=== PATIENT | female | born 1960 | race Caucasian/White ===

== ENCOUNTER 2020-06-03 09:39 | Observation (INO) | payer OTHER ==
[2020-06-03 10:22] LABS: Absolute Lymphocytes (CBC) 2.9 K/uL (0.7-4.9); Basophils % 0.8 % (0-1.3); Hematocrit 42.9 % (36.0-45.0); Lymphocytes % 40.9 % (15.3-44.8); MPV 8.8 fL (7.6-11.3); RBC Red Blood Cell Count 4.76 M/uL (3.86-4.86)
[2020-06-03] MEDS ORDERED: ASPIRIN EC 81 MG TAB PO ONE (10:32)
[2020-06-03] MEDS ORDERED: NITROGLYCERIN 0.4 MG/TAB SL ONE (10:32)
[2020-06-03 10:35] LABS: Protime INR 0.93
[2020-06-03 10:42] LABS: ALT/SGPT 28 U/L (12-78); AST/SGOT 18 U/L (15-37); Albumin 3.8 g/dL (3.4-5.0); Alkaline Phosphatase 52 U/L (45-117); BUN Blood Urea Nitrogen 10 mg/dL (7-18); Bicarbonate 33 mmol/L (21-32); Bilirubin Direct < 0.1 mg/dL (0-0.2); Bilirubin Total 0.3 mg/dL (0.2-1.0); Glucose Level 89 mg/dL (74-106); Magnesium 2.2 mg/dL (1.8-2.4); NT PRO-BNP 61 pg/mL (<125); Potassium 3.8 mmol/L (3.5-5.1); Protein, Total 7.5 g/dL (6.4-8.2); Sodium Level 139 mmol/L (136-145); Troponin (Emerg Dept Use Only) < 0.02 ng/mL (0.0-0.045)
--- NOTE | 2020-06-03 11:30 | RAD REPORT ---
EXAM DESCRIPTION: Elise Single View06/03/2020 10:29 am CLINICAL HISTORY: Chest pain COMPARISON: none FINDINGS: The lungs appear clear of acute infiltrate. The heart is normal size IMPRESSION: No acute abnormalities displayed
[2020-06-03] MEDS ORDERED: MAGNES/ALUMIN/SIMET 30ML UCUP ONE (11:31)
[2020-06-03] MEDS ORDERED: LIDOCAINE VISCOUS 2% SOLN 15 ML UDC ONE ×2 (11:31→11:33)
--- NOTE | 2020-06-03 13:06 | EDPHYS ---
Physician Documentation [facility] Name: Kellie Go Age: 59 yrs Sex: Female : 1960 Arrival Date: 06/03/2020 Time: 09:43 Bed 13 Private MD: Lloyd Nicole ED Physician Earl Godwin HPI: 06/03 10:03 This 59 yrs old Female presents to ER via Unassigned with complaints of Chest jr8 Pain. 10:03 The patient or guardian reports chest pain that is located primarily in the anterior jr8 chest wall, left. Onset: acutely, this morning, at 03:00. The pain does not radiate. Associated signs and symptoms: Pertinent positives: diaphoresis, shortness of breath. The chest pain is described as burning, dull. Duration: The patient or guardian reports a single episode, that is still ongoing. Modifying factors: The symptoms are alleviated by nothing. the symptoms are aggravated by nothing. Severity of pain: At its worst the pain was moderate in the emergency department the pain is unchanged. The patient has not experienced similar symptoms in the past. The patient has not recently seen a physician. Historical: - Allergies: 10:32 No Known Allergies; ld1 - Home Meds: 10:15 lisinopril 20 mg Oral tab 1 tab once daily [Active]; aspirin 81 mg Oral chew 1 tab once ld1 daily [Active]; - PMHx: 10:15 Hypertension; Hyperlipidemia; ld1 - Immunization history:: Adult Immunizations up to date, Adult Immunizations up to date. - Social history:: Smoking status: Patient denies any tobacco usage or history of. Patient/guardian denies using alcohol, Smoking status: Patient denies any tobacco usage or history of. Patient/guardian denies using alcohol. ROS: 10:03 Eyes: Negative for injury, pain, redness, and discharge, ENT: Negative for injury, jr8 pain, and discharge, Neck: Negative for injury, pain, and swelling, Abdomen/GI: Negative for abdominal pain, nausea, vomiting, diarrhea, and constipation, Back: Negative for injury and pain, MS/Extremity: Negative for injury and deformity, Skin: Negative for injury, rash, and discoloration, Neuro: Negative for headache, weakness, numbness, tingling, and seizure. 10:03 Cardiovascular: Positive for chest pain, Negative for edema, orthopnea, palpitations, paroxysmal nocturnal dyspnea. 10:03 Respiratory: Positive for shortness of breath, Negative for cough, dyspnea on exertion, sputum production, wheezing. Exam: 10:03 Neck: Trachea midline, no thyromegaly or masses palpated, and no cervical jr8 lymphadenopathy. Supple, full range of motion without nuchal rigidity, or vertebral point tenderness. No Meningismus. Chest/axilla: Normal chest wall appearance and motion. Nontender with no deformity. No lesions are appreciated. Cardiovascular: Regular rate and rhythm with a normal S1 and S2. No gallops, murmurs, or rubs. Normal PMI, no JVD. No pulse deficits. Respiratory: Lungs have equal breath sounds bilaterally, clear to auscultation and percussion. No rales, rhonchi or wheezes noted. No increased work of breathing, no retractions or nasal flaring. Abdomen/GI: Soft, non-tender, with normal bowel sounds. No distension or tympany. No guarding or rebound. No evidence of tenderness throughout. Back: No spinal tenderness. No costovertebral tenderness. Full range of motion. Skin: Warm, dry with normal turgor. Normal color with no rashes, no lesions, and no evidence of cellulitis. MS/ Extremity: Pulses equal, no cyanosis. Neurovascular intact. Full, normal range of motion. Neuro: Awake and alert, GCS 15, oriented to person, place, time, and situation. Cranial nerves II-XII grossly intact. Motor strength 5/5 in all extremities. Sensory grossly intact. Cerebellar exam normal. Normal gait. 10:53 ECG was reviewed by the Attending Physician. jr8 Vital Signs: 10:15 BP 144 / 73; Pulse 61; Resp 16; Temp 97.5(O); Pulse Ox 97% on R/A; Weight 70.31 kg; ld1 Height 5 ft. 0 in. (152.40 cm); Pain 7/10; 10:25 BP 144 / 73; Pulse 61; Resp 16; Temp 97.5(O); Pulse Ox 97% on R/A; Weight 70.31 kg; ld1 Height 5 ft. 0 in. (152.40 cm); Pain 10/10; 11:25 BP 128 / 70; Pulse 50; Resp 15; Temp 97.5(O); Pulse Ox 98% on R/A; Pain 5/10; ld1 12:49 BP 120 / 64; Pulse 52; Resp 15; Temp 97.5(O); Pulse Ox 98% on R/A; Pain 3/10; ld1 13:45 BP 125 / 69; Pulse 50; Resp 18; Pulse Ox 97% on R/A; Pain 2/10; ld1 14:50 BP 130 / 98; Pulse 59; Resp 14; Pulse Ox 97% on R/A; Pain 3/10; ld1 16:00 BP 128 / 96; Pulse 60; Resp 16; Pulse Ox 98% on R/A; Pain 3/10; ld1 16:43 BP 132 / 98; Pulse 55; Resp 16; Pulse Ox 97% on R/A; Pain 3/10; ld1 17:31 BP 135 / 75; Pulse 58; Resp 12; Pulse Ox 97% on R/A; ld1 18:29 BP 115 / 53; Pulse 53; Resp 17; Pulse Ox 96% on R/A; ld1 10:25 Body Mass Index 30.27 (70.31 kg, 152.40 cm) ld1 MDM: 09:54 Patient medically screened. jr8 13:05 The patient was given aspirin in the Emergency Department. Data reviewed: vital signs, jr8 nurses notes, lab test result(s), EKG, radiologic studies, plain films. Data interpreted: Pulse oximetry: on room air is 98 %. Interpretation: normal. Counseling: I had a detailed discussion with the patient and/or guardian regarding: the historical points, exam findings, and any diagnostic results supporting the discharge/admit diagnosis, lab results, radiology results, the need for further work-up and treatment in the hospital. 13:05 ED course: Patient still having chest pain regardless of the GI cocktail and nitro. jr8 Strong family history and has comorbidities. Will put in for chest pain observation under Dr. Nicole and have cardiology see patient . 06/03 09:54 Order name: Basic Metabolic Panel; Complete Time: 10:49 8 06/03 09:54 Order name: CBC with Diff; Complete Time: 10:49 8 06/03 09:54 Order name: LFT's; Complete Time: 10:49 8 06/03 09:54 Order name: Magnesium; Complete Time: 10:49 8 06/03 09:54 Order name: NT PRO-BNP; Complete Time: 10:49 8 06/03 09:54 Order name: PT-INR; Complete Time: 10:58 8 06/03 09:54 Order name: Troponin (emerg Dept Use Only); Complete Time: 10:49 8 06/03 12:38 Order name: Troponin (emerg Dept Use Only); Complete Time: 13:23 [facility] 06/03 15:36 Order name: COVID-19 : Document "Date of Symptom Onset" if Symptomatic. [facility] 06/03 16:04 Order name: CORONAVIRUS EDNM 06/03 17:43 Order name: Troponin I; Complete Time: 17:45 [facility] 06/03 18:18 Order name: SARS-COV-2 RT PCR; Complete Time: 18:20 [facility] 06/03 20:58 Order name: Troponin I; Complete Time: 21:17 [facility] 06/03 09:54 Order name: XRAY Chest (1 view); Complete Time: 11:31 [facility] 06/03 09:54 Order name: EKG; Complete Time: 09:55 [facility] 06/03 09:54 Order name: Cardiac monitoring; Complete Time: 10:10 [facility] 06/03 09:54 Order name: EKG - Nurse/Tech; Complete Time: 10:10 [facility] 06/03 09:54 Order name: IV Saline Lock; Complete Time: 10:10 [facility] 06/03 09:54 Order name: Labs collected and sent; Complete Time: 10:10 [facility] 06/04 04:17 Order name: CBC with Automated Diff EDNM 06/04 04:59 Order name: Basic Metabolic Panel EDNM 06/04 04:59 Order name: Lipid Profile EDNM 06/04 04:59 Order name: Thyroid Stimulating Hormone EDNM 06/03 09:54 Order name: O2 Per Protocol; Complete Time: 10:10 [facility] 06/03 09:54 Order name: O2 Sat Monitoring; Complete Time: 10:10 EC:53 Rate is 50 beats/min. Rhythm is regular, Sinus bradycardia. QRS Cactus is Normal. VA jr8 interval is normal at 196 msec. QRS interval is normal at 82 msec. QT interval is normal at 420 msec. No Q waves. T waves are Inverted in leads V1, V2. No ST changes noted. Clinical impression: Sinus bradycardia. Interpreted by me. Reviewed by me. Administered Medications: 10:17 Drug: Aspirin Chewable Tablet 243 mg Route: PO; ld1 10:35 Follow up: Response: No adverse reaction ld1 10:17 Drug: Nitroglycerin 0.4 mg Route: Sublingual; ld1 10:25 Follow up: Response: No adverse reaction; Pain is unchanged, physician notified ld1 11:18 Drug: GI Cocktail without - (Maalox Suspension 30 ml, Lidocaine Liquid 2 % 15 ld1 ml) Route: PO; 11:30 Follow up: Response: No adverse reaction; Pain is decreased ld1 13:06 Drug: fentaNYL (PF) 50 mcg Route: IVP; Site: left antecubital; ld1 13:22 Follow up: Response: No adverse reaction; Pain is decreased ld1 17:17 Drug: morphine 4 mg Route: IVP; Site: left antecubital; ld1 17:32 Follow up: Response: No adverse reaction ld1 17:18 Drug: Zofran (Ondansetron) 4 mg Route: IVP; Site: left antecubital; ld1 17:32 Follow up: Response: No adverse reaction ld1 Disposition: 06/03/20 13:05 Hospitalization ordered by Lloyd Nicole for Observation. Preliminary diagnosis is Chest pain, unspecified. - Bed requested for Telemetry/MedSurg (observation). - Status is Observation. ea - Condition is Stable. - Problem is new. - Symptoms are unchanged. Addendum: 06/06/2020 07:09 Co-signature as Attending Physician, Earl Godwin MD. r n Signatures: Dispatcher [employer] EDPolina Liang Roman, MD MD rn Roszak, Josh, PA PA jr8 Kasandra Weathers RN RN ea Trim, Tyler tt3 Liz Pérez RN RN ld1 Corrections: (The following items were deleted from the chart) 06/03 10:33 10:32 Immunization history: Adult Immunizations up to date, ld1 ld1 10:33 10:32 Social history: Smoking status: Patient denies any tobacco usage or history of. ld1 Patient/guardian denies using alcohol, ld1 17:19 13:05 Hospitalization Ordered by Lloyd Nicole MD for Observation. Preliminary diagnosis bd is Chest pain, unspecified. Bed requested for Telemetry/MedSurg (observation). Status is Observation. Condition is Stable. Problem is new. Symptoms are unchanged. jr8 06/04 03:37 04/07 17:19 06/03/2020 13:05 Hospitalization Ordered by Lloyd Nicole MD for tt3 Observation. Preliminary diagnosis is Chest pain, unspecified. Bed requested for [facility] ER HOLD. Status is Observation. Condition is Stable. Problem is new. Symptoms are unchanged. bd 06/04 05:07 03:37 06/03/2020 13:05 Hospitalization Ordered by Lloyd Nicole MD for Observation. ea Preliminary diagnosis is Chest pain, unspecified. Bed requested for Telemetry/MedSurg (observation). Status is Observation. Condition is Stable. Problem is new. Symptoms are unchanged. tt3
--- NOTE | 2020-06-03 13:06 | ER ---
Nurse's Notes [facility] Name: Kellie Go Age: 59 yrs Sex: Female : 1960 Arrival Date: 06/03/2020 Time: 09:43 Bed 13 Private MD: Lloyd Nicole Diagnosis: Chest pain, unspecified Presentation: 06/03 10:15 Chief complaint: Patient states: Patient came in c/o chest pain. Coronavirus screen: ld1 Client denies travel out of the [place] in the last 14 days. Ebola Screen: Patient negative for fever greater than or equal to 101.5 degrees Fahrenheit, and additional compatible Ebola Virus Disease symptoms Patient denies exposure to infectious person. Patient denies travel to an Ebola-affected area in the 21 days before illness onset. 10:15 Method Of Arrival: Ambulatory ld1 10:15 Initial Sepsis Screen: Does the patient meet any 2 criteria? No. Patient's initial ld1 sepsis screen is negative. Does the patient have a suspected source of infection? No. Patient's initial sepsis screen is negative. Risk Assessment: Do you want to hurt yourself or someone else? Patient reports no desire to harm self or others. Onset of symptoms was June 03, 2020 at 03:00. 10:15 Acuity: KRAIG 2 ld1 Triage Assessment: 10:15 General: Behavior is calm, cooperative, appropriate for age. Pain: Complains of pain in ld1 chest Pain radiates to left scapular area Pain currently is 7 out of 10 on a pain scale. Quality of pain is described as pressure, throbbing, Pain began 4 hours ago. Is continuous. EENT: No deficits noted. Neuro: Level of Consciousness is awake, alert, obeys commands, Oriented to person, place, time, situation. Cardiovascular: Reports chest pain, Patient's skin is warm and dry. Rhythm is regular. Respiratory: Airway is patent Respiratory effort is even, unlabored, Respiratory pattern is regular, symmetrical. GI: No signs and/or symptoms were reported involving the gastrointestinal system. : No signs and/or symptoms were reported regarding the genitourinary system. Derm: No signs and/or symptoms reported regarding the dermatologic system. Musculoskeletal: No signs and/or symptoms reported regarding the musculoskeletal system. Historical: - Allergies: 10:32 No Known Allergies; ld1 - Home Meds: 10:15 lisinopril 20 mg Oral tab 1 tab once daily [Active]; aspirin 81 mg Oral chew 1 tab once ld1 daily [Active]; - PMHx: 10:15 Hypertension; Hyperlipidemia; ld1 - Immunization history:: Adult Immunizations up to date, Adult Immunizations up to date. - Social history:: Smoking status: Patient denies any tobacco usage or history of. Patient/guardian denies using alcohol, Smoking status: Patient denies any tobacco usage or history of. Patient/guardian denies using alcohol. Screenin:25 Abuse screen: Denies threats or abuse. Denies injuries from another. Nutritional ld1 screening: No deficits noted. Tuberculosis screening: No symptoms or risk factors identified. Fall Risk IV access (20 points). Assessment: 10:25 Reassessment: No changes from previously documented assessment. Patient and/or family ld1 updated on plan of care and expected duration. Pain level reassessed. Patient is alert, oriented x 3, equal unlabored respirations, skin warm/dry/pink. See triage assessment. 10:25 Pain: Complains of pain in chest Pain radiates to left scapular area and left ld1 subscapular area Pain currently is 7 out of 10 on a pain scale. Quality of pain is described as pressure, throbbing, Pain began 4 hours ago. Is continuous. 11:25 Reassessment: Patient states that chest pain was unrelieved by Nitroglycerin, notified ld1 ERP. GI cocktail was ordered and given at 1118. 11:25 Reassessment: Patient stated that chest pain intensity was decreasing after GI cocktail ld1 was consumed. Notified ERP. See MAR for orders. 12:49 Reassessment: Patient and/or family updated on plan of care and expected duration. Pain ld1 level reassessed. Patient states feeling better. Patient states she is feeling better and pain has decreased but still experiencing pain level 3/10.. General: Appears in no apparent distress. comfortable. 13:00 Reassessment:. Reassessment: Patient stated she felt like she still had chest pressure, ld1 notified ERP. See MAR for orders. 14:30 Reassessment: No changes from previously documented assessment. Patient and/or family ld1 updated on plan of care and expected duration. Pain level reassessed. Patient is alert, oriented x 3, equal unlabored respirations, skin warm/dry/pink. Patient denies pain at this time. 15:55 Reassessment: No changes from previously documented assessment. Patient and/or family ld1 updated on plan of care and expected duration. Pain level reassessed. Patient is alert, oriented x 3, equal unlabored respirations, skin warm/dry/pink. Patient denies pain at this time. 18:29 Reassessment: No changes from previously documented assessment. Patient and/or family ld1 updated on plan of care and expected duration. Pain level reassessed. Patient is alert, oriented x 3, equal unlabored respirations, skin warm/dry/pink. Vital Signs: 10:15 BP 144 / 73; Pulse 61; Resp 16; Temp 97.5(O); Pulse Ox 97% on R/A; Weight 70.31 kg; ld1 Height 5 ft. 0 in. (152.40 cm); Pain 7/10; 10:25 BP 144 / 73; Pulse 61; Resp 16; Temp 97.5(O); Pulse Ox 97% on R/A; Weight 70.31 kg; ld1 Height 5 ft. 0 in. (152.40 cm); Pain 10/10; 11:25 BP 128 / 70; Pulse 50; Resp 15; Temp 97.5(O); Pulse Ox 98% on R/A; Pain 5/10; ld1 12:49 BP 120 / 64; Pulse 52; Resp 15; Temp 97.5(O); Pulse Ox 98% on R/A; Pain 3/10; ld1 13:45 BP 125 / 69; Pulse 50; Resp 18; Pulse Ox 97% on R/A; Pain 2/10; ld1 14:50 BP 130 / 98; Pulse 59; Resp 14; Pulse Ox 97% on R/A; Pain 3/10; ld1 16:00 BP 128 / 96; Pulse 60; Resp 16; Pulse Ox 98% on R/A; Pain 3/10; ld1 16:43 BP 132 / 98; Pulse 55; Resp 16; Pulse Ox 97% on R/A; Pain 3/10; ld1 17:31 BP 135 / 75; Pulse 58; Resp 12; Pulse Ox 97% on R/A; ld1 18:29 BP 115 / 53; Pulse 53; Resp 17; Pulse Ox 96% on R/A; ld1 10:25 Body Mass Index 30.27 (70.31 kg, 152.40 cm) ld1 ED Course: 09:43 Patient arrived in ED. am2 09:43 Lloyd Nicole MD is Private Physician. am2 09:54 [facility] White [facility] jr8 09:54 Earl Godwin MD is Attending Physician. jr8 10:08 Liz Pérez RN is Primary Nurse. ld1 10:13 Inserted saline lock: 20 gauge in left antecubital area, using aseptic technique. Blood ld1 collected. 10:15 Arm band placed on Patient placed in an exam room, on cardiac exercise specialist, on pulse ld1 oximetry. EKG completed in triage. Results shown to MD. 10:25 No provider procedures requiring assistance completed. Inserted saline lock: 20 gauge ld1 in left antecubital area, using aseptic technique. Blood collected. Patient maintains SpO2 saturation greater than 95% on room air. 10:25 Patient has correct armband on for positive identification. Placed in gown. Bed in low ld1 position. Call light in reach. Side rails up X 1. athletic monitor on. Pulse ox on. NIBP on. 10:29 XRAY Chest (1 view) In Process Unspecified. EDMS 10:32 Triage completed. ld1 12:49 Troponin (emerg Dept Use Only) Sent. ld1 13:05 Lloyd Nicole MD is Hospitalizing Provider. jr8 15:59 COVID-19 : Document "Date of Symptom Onset" if Symptomatic. Sent. ld1 16:46 CORONAVIRUS Sent. ld1 Administered Medications: 10:17 Drug: Aspirin Chewable Tablet 243 mg Route: PO; ld1 10:35 Follow up: Response: No adverse reaction ld1 10:17 Drug: Nitroglycerin 0.4 mg Route: Sublingual; ld1 10:25 Follow up: Response: No adverse reaction; Pain is unchanged, physician notified ld1 11:18 Drug: GI Cocktail without - (Maalox Suspension 30 ml, Lidocaine Liquid 2 % 15 ld1 ml) Route: PO; 11:30 Follow up: Response: No adverse reaction; Pain is decreased ld1 13:06 Drug: fentaNYL (PF) 50 mcg Route: IVP; Site: left antecubital; ld1 13:22 Follow up: Response: No adverse reaction; Pain is decreased ld1 17:17 Drug: morphine 4 mg Route: IVP; Site: left antecubital; ld1 17:32 Follow up: Response: No adverse reaction ld1 17:18 Drug: Zofran (Ondansetron) 4 mg Route: IVP; Site: left antecubital; ld1 17:32 Follow up: Response: No adverse reaction ld1 Outcome: 13:05 Decision to Hospitalize by Provider. jr8 06/04 05:07 Patient left the ED. ea Signatures: Dispatcher [employer] EDMS Camacho White PA PA jr8 Renetta Patterson am2 Kasandra Weathers RN RN Liz Bui RN RN ld1 Corrections: (The following items were deleted from the chart) 06/03 10:32 10:18 Chief complaint: ld1 ld1 10:33 10:32 Immunization history: Adult Immunizations up to date, ld1 ld1 10:33 10:32 Social history: Smoking status: Patient denies any tobacco usage or history of. ld1 Patient/guardian denies using alcohol, ld1 : 10:33 General: Behavior is calm, cooperative, appropriate for age, ld1 ld1 10:36 10:33 Pain: Complains of pain in chest Pain radiates to left scapular area Pain ld1 currently is 7 out of 10 on a pain scale. Quality of pain is described as pressure, throbbing, Pain began 4 hours ago. Is continuous, ld1 : 10:33 EENT: No deficits noted. ld1 ld1 :36 10:33 Neuro: Level of Consciousness is awake, alert, obeys commands, Oriented to ld1 person, place, time, situation, ld1 :36 10:33 Cardiovascular: Reports chest pain, Patient's skin is warm and dry. Rhythm is ld1 regular ld1 :36 10:33 Respiratory: Airway is patent Respiratory effort is even, unlabored, Respiratory ld1 pattern is regular, symmetrical, ld1 :36 10:33 GI: No signs and/or symptoms were reported involving the gastrointestinal system. ld1 ld1 : 10:33 : No signs and/or symptoms were reported regarding the genitourinary system. ld1ld1 10:36 10:33 Derm: No signs and/or symptoms reported regarding the dermatologic system. ld1 ld1 10:36 10:33 Musculoskeletal: No signs and/or symptoms reported regarding the musculoskeletal ld1 system. ld1 11:39 11:38 Response: No adverse reaction ld1 ld1
[2020-06-03] MEDS ORDERED: FENTANYL CITR 100 MCG/2 ML ONE (13:20)
[2020-06-03] MEDS ORDERED: ONDANSETRON 4 MG/2 ML VIAL IV PRN (16:03)
--- NOTE | 2020-06-03 16:30 | P.HP ---
Certification for Inpatient Patient admitted to: Observation With expected LOS: <2 Midnights Patient will require the following post-hospital care: None Practitioner: I am a practitioner with admitting privileges, knowledge of patient current condition, hospital course, and medical plan of care. Services: Services provided to patient in accordance with Admission requirements found in Title 42 Section 412.3 of the Code of Federal Regulations Patient History Date of Service: 06/03/20 Primary Care Provider: Corey Reason for admission: Chest pain History of Present Illness: Patient recently established care with us. She has a history of htn, elevated cholesterol. She has chronic neck pain for which she is being seen by Dr Shaheen Dumont. The patient woke up this morning with left sided chest pain. Which was different from her regular neck pain. Mostly it was in the front of her chest. She described it as stabbing over the left side of her chest. She went to work. However she had this constantly and decided to come to the ER. She did not have any relief with ntg. She had some relief with the GI cocktail. As with the iv fentanyl However not resolved. Her son had early AK. However that was after a history of drug abuse and dm2. She does not have dm2. Never had this type of pain before. Allergies No Known Allergies Allergy (Unverified 06/03/20 15:41) Review of Systems 10-point ROS is otherwise unremarkable Cardiovascular: Chest Pain Physical Examination - Physical Exam General: Alert, In no apparent distress HEENT: Atraumatic, PERRLA, Mucous membr. moist/pink, EOMI, Sclerae nonicteric Neck: Supple, 2+ carotid pulse no bruit, No LAD, Without JVD or thyroid abnormality Respiratory: Clear to auscultation bilaterally, Normal air movement Cardiovascular: Regular rate/rhythm, Normal S1 S2 Gastrointestinal: Normal bowel sounds, No tenderness Musculoskeletal: No tenderness Integumentary: No rashes Neurological: Normal gait, Normal speech, Normal strength at 5/5 x4 extr, Normal tone, Normal affect Lymphatics: No axilla or inguinal lymphadenopathy - Studies Laboratory Data (last 24 hrs) 06/03/20 10:05: PT 10.7, INR 0.93 06/03/20 10:05: WBC 7.10, Hgb 14.6, Hct 42.9, Plt Count 413 H 06/03/20 10:05: Sodium 139, Potassium 3.8, BUN 10, Creatinine 0.65, Glucose 89, Magnesium 2.2, Total Bilirubin 0.3, AST 18, ALT 28, Alkaline Phosphatase 52 Assessment and Plan - Problems (Diagnosis) (1) Chest pain Current Visit: Yes Status: Acute Plan: Currently has no ekg changes. She has an initial negative troponins. Will keep her for observation. Check serial troponins. Have the patient seen by Cardiology. Will let them decide if she needs an inpatient or out patient work up. Qualifiers: Ischemic chest pain type: unstable angina pectoris (2) HTN (hypertension) Current Visit: Yes Status: Acute Plan: Currently stable. Will check for her home medications. adjust as necessary. Qualifiers: Hypertension type: essential hypertension Qualified Code(s): I10 - Essential (primary) hypertension (3) Hyperlipidemia Current Visit: Yes Status: Chronic Plan: will recheck her labs. Start the patient on a statin at this time. Qualifiers: Hyperlipidemia type: moderate mixed hyperlipidemia not requiring statin therapy Qualified Code(s): E78.2 - Mixed hyperlipidemia Discharge Plan: Home Plan to discharge in: 24 Hours - Advance Directives Does patient have a Living Will: No Does patient have a Durable POA for Healthcare: No - Code Status/Comfort Care Code Status Assessed: Yes Code Status: Full Code Physician Review: Patient Assessed, Agree with Above Assessment and Plan Critical Care: No Time Spent Managing Pts Care (In Minutes): 45
[2020-06-03] MEDS ORDERED: ENOXAPARIN 40 MG/0.4 ML SQ SCH (17:00)
[2020-06-03] MEDS ORDERED: MORPHINE 4 MG/ML SYR ONE ×2 (17:22→20:39)
[2020-06-03] MEDS ORDERED: ONDANSETRON 4 MG/2 ML VIAL ONE (17:22)
[2020-06-03 18:57] VITALS: BMI 30.2
[2020-06-03] MEDS ORDERED: ENOXAPARIN 40 MG/0.4 ML SQ ONE (19:29)
[2020-06-03] MEDS: MORPHINE 4 MG/ML SYR IV PRN (20:31)
[2020-06-03] MEDS ORDERED: ATORVASTATIN 20 MG TAB ONE (20:40)
[2020-06-03] MEDS ORDERED: ATORVASTATIN 20 MG TAB PO SCH (21:00)
[2020-06-04] MEDS: MORPHINE 4 MG/ML SYR IV PRN (00:30)
[2020-06-04] MEDS ORDERED: MORPHINE 4 MG/ML SYR ONE (00:46)
[2020-06-04 04:12] LABS: Absolute Lymphocytes (CBC) 3.3 K/uL (0.7-4.9); Basophils % 0.7 % (0-1.3); Hematocrit 40.6 % (36.0-45.0); Lymphocytes % 40.9 % (15.3-44.8); RBC Red Blood Cell Count 4.46 M/uL (3.86-4.86)
[2020-06-04 04:49] LABS: BUN Blood Urea Nitrogen 10 mg/dL (7-18); Bicarbonate 32 mmol/L (21-32); Glucose Level 96 mg/dL (74-106); HDL Cholesterol 31 mg/dL (40-60); LDL Cholesterol, Calculated 136 (<130); Potassium 4.3 mmol/L (3.5-5.1); Sodium Level 142 mmol/L (136-145)
--- NOTE | 2020-06-04 08:50 | EKG ---
Test Date: 2020-06-03 Test Time: 17:00:53 Catering Administrative Assistant: Dmitry Virgen MEASUREMENT RESULTS: Intervals: Rate: 61 [place]: 204 QRSD: 84 QT: 404 QTc: 406 [place]: P: 41 [place]: 204 QRS: 15 T: 56 INTERPRETIVE STATEMENTS: Normal sinus rhythm Low voltage QRS Cannot rule out Anterior infarct, age undetermined Abnormal ECG Compared to ECG 06/03/2020 10:16:04 Myocardial infarct finding now present Sinus bradycardia no longer present Electronically Signed On 06-04-20 08:48:35 CDT by Girish Atiknson
--- NOTE | 2020-06-04 08:52 | EKG ---
Test Date: 2020-06-03 Test Time: 10:16:04 Driller Helper: Ankit WING MEASUREMENT RESULTS: Intervals: Rate: 50 [place]: 196 QRSD: 82 QT: 420 QTc: 382 [place]: P: 47 [place]: 196 QRS: 53 T: 65 INTERPRETIVE STATEMENTS: Sinus bradycardia Low voltage QRS Borderline ECG No previous ECG available for comparison Electronically Signed On 06-04-20 08:50:18 CDT by Girish Atkinson
[2020-06-04] MEDS ORDERED: FAMOTIDINE 20 MG TAB PO SCH (09:00)
[2020-06-04] MEDS ORDERED: ASPIRIN EC 81 MG TAB PO SCH (09:00)
[2020-06-04] MEDS ORDERED: ACETAMINOPHEN 325 MG TABLET PO PRN (09:21)
--- NOTE | 2020-06-04 15:44 | P.DS ---
Admission Date: 06/03/20 Discharge Date: 06/04/20 Primary Care Provider: Corey Disposition: ROUTINE DISCHARGE Discharge Condition: GOOD Reason for Admission: Chest pain - Problems (1) Chest pain Current Visit: Yes Status: Acute Qualifiers: Ischemic chest pain type: unstable angina pectoris (2) HTN (hypertension) Current Visit: Yes Status: Acute Qualifiers: Hypertension type: essential hypertension Qualified Code(s): I10 - Essential (primary) hypertension (3) Hyperlipidemia Current Visit: Yes Status: Chronic Qualifiers: Hyperlipidemia type: moderate mixed hyperlipidemia not requiring statin therapy Qualified Code(s): E78.2 - Mixed hyperlipidemia Brief History of Present Illness: Patient recently established care with us. She has a history of htn, elevated cholesterol. She has chronic neck pain for which she is being seen by Dr Shaheen Dumont. The patient woke up this morning with left sided chest pain. Which was different from her regular neck pain. Mostly it was in the front of her chest. She described it as stabbing over the left side of her chest. She went to work. However she had this constantly and decided to come to the ER. She did not have any relief with ntg. She had some relief with the GI cocktail. As with the iv fentanyl However not resolved. Her son had early CA. However that was after a history of drug abuse and dm2. She does not have dm2. Never had this type of pain before. Hospital Course: Patient is came with chest pain. Seen by Dr. Atkinson. She is doing better had 3 negative trop. Will send her home on protonix in case this is GI. Will complete the rest of the workout as an outpatient Vital Signs/Physical Exam: Temp Pulse Resp BP Pulse Ox 97.9 F 65 16 111/57 L 96 06/04/20 11:58 06/04/20 11:58 06/04/20 11:58 06/04/20 11:58 06/04/20 11:58 General: Alert, In no apparent distress HEENT: Atraumatic, PERRLA, EOMI Neck: Supple, JVD not distended Respiratory: Clear to auscultation bilaterally, Normal air movement Cardiovascular: Regular rate/rhythm, Normal S1 S2 Gastrointestinal: Normal bowel sounds, No tenderness Musculoskeletal: No tenderness Integumentary: No rashes Neurological: Normal speech, Normal tone, Normal affect Lymphatics: No axilla or inguinal lymphadenopathy Laboratory Data at Discharge: WBC 8.10 K/uL (4.3-10.9) D 06/04/20 03:33 Hgb 13.5 g/dL (12.0-15.0) 06/04/20 03:33 Hct 40.6 % (36.0-45.0) 06/04/20 03:33 Plt Count 367 K/uL (152-406) 06/04/20 03:33 PT 10.7 SECONDS (9.5-12.5) 06/03/20 10:05 INR 0.93 06/03/20 10:05 Sodium 142 mmol/L (136-145) 06/04/20 03:33 Potassium 4.3 mmol/L (3.5-5.1) 06/04/20 03:33 BUN 10 mg/dL (7-18) 06/04/20 03:33 Creatinine 0.65 mg/dL (0.55-1.3) 06/04/20 03:33 Glucose 96 mg/dL (74-106) 06/04/20 03:33 Magnesium 2.2 mg/dL (1.8-2.4) 06/03/20 10:05 Total Bilirubin 0.3 mg/dL (0.2-1.0) 06/03/20 10:05 AST 18 U/L (15-37) 06/03/20 10:05 ALT 28 U/L (12-78) 06/03/20 10:05 Alkaline Phosphatase 52 U/L (45-117) 06/03/20 10:05 Troponin I < 0.02 ng/mL (0.0-0.045) 06/03/20 20:25 Triglycerides 232 mg/dL (<150) H 06/04/20 03:33 Cholesterol 213 mg/dL (<200) H 06/04/20 03:33 HDL Cholesterol 31 mg/dL (40-60) L 06/04/20 03:33 Cholesterol/HDL Ratio 6.87 06/04/20 03:33 Home Medications: Aspirin [Aspirin EC] 81 mg PO DAILY 06/03/20 Hydrocodone 10/APAP 325 [[place] 10/325] 1 tab PO BID PRN 06/03/20 lisinopriL [Lisinopril] 10 mg PO DAILY 06/03/20 Atorvastatin Calcium 20 mg PO BEDTIME 90 Days #90 tablet 06/04/20 Pantoprazole [Protonix Tab*] 40 mg PO DAILY 90 Days #90 tab 06/04/20 New Medications: Atorvastatin Calcium 20 mg PO BEDTIME 90 Days #90 tablet Pantoprazole [Protonix Tab*] 40 mg PO DAILY 90 Days #90 tab Diet: Regular Activity: Ad jose c Followup: Lloyd Nicole MD [Primary Care Provider] - 1 Week Girish Atkinson MD [ACTIVE - CAN ADMIT] - 1-2 Weeks Physician Review: Patient Assessed, Agree with Above Assessment and Plan Time spent managing pt's care (in minutes): 30
[2020-06-04 16:15] VITALS: BP 130/57; TEMP 98
[2020-06-04 21:17] VITALS: O2SAT 96
--- NOTE | 2020-06-05 08:08 | ECHO ---
HEIGHT: 5 ft 0 in WEIGHT: 155 lb 0 oz DATE OF STUDY: 06/04/[address]: Girish Atkinson MD 2-DIMENSIONAL: YES M.MODE: YES DOPPLER: YES COLOR FLOW: YES TDS: PORTABLE: DEFINITY: BUBBLE STUDY: DIAGNOSIS: CHEST PAIN CARDIAC HISTORY: CATHERIZATION: NO SURGERY: NO PROSTHETIC VALVE: NO PACEMAKER: NO MEASUREMENTS (cm) DIASTOLIC (NORMALS) SYSTOLIC (NORMALS) IVSd 0.9 (0.6-1.2) LA Diam 2.5 (1.9-4.0) LVEF 60-65% LVIDd 3.9 (3.5-5.7) LVIDs 2.1 (2.0-3.5) %FS 47% LVPWd 1.0 (0.6-1.2) Ao Diam 2.6 (2.0-3.7) 2 DIMENSIONAL ASSESSMENT: RIGHT ATRIUM: NORMAL LEFT ATRIUM: NORMAL RIGHT VENTRICLE: NORMAL LEFT VENTRICLE: NORMAL TRICUSPID VALVE: NORMAL MITRAL VALVE: NORMAL PULMONIC VALVE: NORMAL AORTIC VALVE: NORMAL PERICARDIAL EFFUSION: NONE AORTIC ROOT: NORMAL LEFT VENTRICULAR WALL MOTION: NORMAL DOPPLER/COLOR FLOW: NORMAL COMMENTS: NORMAL LEFT VENTRICULAR EJECTION FRACTION 60-65%. NORMAL WALL MOTION. TECHNOLOGIST: CHANDA SHAY
--- NOTE | 2020-06-05 21:11 | CON ---
Date of Consultation: 06/03/2020 Reason For Consultation: Atypical chest pain. History Of Present Illness: Ms. Go is a 59-year-old woman with history of hypertension, dyslipid emia, came in with anterior chest wall on the left side that does not radiate, has some diaphoresis a nd shortness of breath. Pain was described as burning, has lasted few hours. No nausea or vomiting. Denied PND, orthopnea, pedal edema, palpitations, or syncope. Pain free when we saw her. __ myocardial infarction. Past Medical History: Includes hypertension, dyslipidemia. Allergies: NONE. Medications: Lisinopril, aspirin. Review of Systems: Negative. Social History: Negative. Family History: Noncontributory. Physical Examination: Vital Signs: Stable. Afebrile. HEENT: Negative. Neck: Supple with no bruit. Chest: Clear to auscultation and percussion. Cardiac: Regular rhythm and rate. No murmurs, gallops, or rubs. Abdomen: Benign. Extremities: No clubbing, cyanosis, or edema. Diagnostic Data: Normal except for a lipid profile. Her LDL was 136, cholesterol was 213, her trigl yceride was 232, her ratio was 6.87. Impression And Plan: Atypical chest pain. Echocardiogram is normal. Troponin and BNP are normal. Chest x-ray is normal. EKG is normal. I am comfortable with Ms. Go going home on her home medic ations, although I think she should be on a statin. I will make an arrangement for her to have an ou tpatient stress test and see me in the office in the near future. JORDAN/MODL Voice ID: [id number] Report ID: [id number]
== END 2020-06-04 16:41 | disposition home or self-care (01) ==
LOC: ER 09:39 → ERHOLD 14:56 → 4TH 06-04 04:40
PROVIDERS: ADMIT Internal Medicine; ATTEND Internal Medicine
DX: R07.89 Other chest pain (principal); I10 Essential (primary) hypertension; E78.5 Hyperlipidemia, unspecified; G89.29 Other chronic pain; M54.2 Cervicalgia; Z20.822 Contact with and (suspected) exposure to COVID-19; Z82.49 Family history of ischemic heart disease and other diseases of the circulatory system; Z83.3 Family history of diabetes mellitus
CPT/HCPCS: 93005 ×2; 93306; 85025 ×2; 80048 ×2; 36415; 83735; 85610; 80061; 80076; 84443; 84484 ×4; 84439; 83880; 71045; 96375; 96374; 99285; U0003; J1650; J3010; J2405; G0378 ×3